=== PATIENT | female | born 1990 | race African-American/Black ===

== ENCOUNTER 2017-05-30 03:45 | Emergency (ER) | payer OTHER ==
[~2017-05-30] VITALS: Ht 167.6 cm; Wt 74.8 kg
--- NOTE | ~2017-05-30 | CR63 ---
[facility] A Service of [facility] & [facility] RADIOLOGY TEXT RESULTS PATIENT: CHRISTINA PEREYRA LOCATION: [facility] : 88 UNIT #: [id number] AGE: [address]: Marlys Burch SEX: F ORDER DR: [id number] [facility] [address] [place], [place] [address] [id number] E MR#: [id number] Acc #: [id number] NAME: CHRISTINA PEREYRA : 1990 SEX: F STUDY DATE/TIME: 05/30/2017 4:52 UNIT: [facility] ROOM: STUDY DESCRIPTION: CR Chest 2 View Attending Physician: Marlys Burch Pa-C Ordering Physician: Marlys Burch Pa-C Primary Care Physician: Austen Gonzáles M.D. MEDICAL IMAGING REPORT This report is preliminary unless electronic signature is present EXAM PA and lateral chest HISTORY Shortness and mid chest pain for 2 days. FINDINGS The cardiac size and pulmonary vascularity are normal. Minimal left upper thoracic curve. No airspace infiltrates or effusions. IMPRESSION No acute findings Dictated by... Zeus Schafer M.D. THIS IS AN ELECTRONICALLY VERIFIED REPORT Zeus Schafer M.D. at 05/31/2017 6:33 AM SUZANNA/alvina TD: 05/31/2017 05:50 JOB #: [id number] MEDICAL IMAGING REPORT Page 1 of 1 COPY
[~2017-05-30 03:45] MED LIST: FAMOTIDINE PO; FLEXERIL10 M1 PO; IBUPROFEN800 MG PO; TORADOL10 MG PO
== END 2017-05-30 06:00 | disposition home or self-care (01) ==
LOC: CED 03:45
DX: R07.89 Other chest pain (principal); R42 Dizziness and giddiness
CPT/HCPCS: 71020; 99284